=== PATIENT | female | born 1985 | race Two or more races ===

== ENCOUNTER → 2017-11-15 | Outpatient (CLI) | payer OTHER ==
[2017-11-15 12:08] LABS: Hepatitis B Surface Antibody Positive
[2017-11-15 12:18] LABS: Hepatitis B Surface Antigen Negative (Negative)
== END | disposition home or self-care (01) ==
LOC: LAB 10:23
PROVIDERS: ATTEND Nurse Practitioner
DX: Z57.8 Occupational exposure to other risk factors (principal)
CPT/HCPCS: 36415; 86703; 86706; 86803; 87340